=== PATIENT | male | born 1945 | race African-American/Black ===

== ENCOUNTER 2022-06-17 12:06 | Outpatient (CLI) | payer MEDICARE | END 2022-06-17 12:07 | disposition home or self-care (01) | LOC: CT 12:06 | PROVIDERS: ATTEND Physician Assistant | DX: H90.A32 Mixed conductive and sensorineural hearing loss, unilateral, left ear with restricted hearing on the contralateral side (principal) | CPT/HCPCS: 70480 ==

== ENCOUNTER 2024-01-03 16:47 | Emergency (ER) | payer MEDICARE, BC | END 2024-01-03 17:15 | disposition home or self-care (01) | LOC: ERS 16:47 | DX: I10 Essential (primary) hypertension (principal); Z76.0 Encounter for issue of repeat prescription | CPT/HCPCS: 99282 ==